=== PATIENT | female | born 1985 | race Caucasian/White ===

== ENCOUNTER 2021-10-14 00:17 | Emergency (ER) | payer OTHER, SELFPAY ==
[2021-10-14 00:25] VITALS: BP 141/77; PULSE 95; RESP 16; TEMP 36.8; O2SAT 100
--- NOTE | 2021-10-14 00:29 | ED.ABDPAIN ---
HPI - Abdominal Pain General Chief Complaint: Abdominal Pain Stated Complaint: 2 KIDNEY STONES Time Seen by Provider: 10/14/21 00:22 Source: patient Mode of arrival: Ambulatory History of Present Illness HPI narrative: 36-year-old female nonsmoker with noncontributory medical history presents with a chief complaint of right flank pain that seems to come and go without any obvious pattern. She denies any injury nor fever or chills. She was seen and evaluated yesterday add would be and had extensive workup including labs and CT which apparently note to kidney stones. She was discharged with pain medications but she has only taken half a pill as she has young children and she was concerned. She denies dysuria, frequency or urgency. Related Data Previous Rx's Medication Instructions Recorded cephalexin 500 mg capsule 500 mg PO BID #10 cap 10/14/21 ketorolac 10 mg tablet 10 mg PO Q6H PRN #14 tab 10/14/21 tamsulosin 0.4 mg capsule (Flomax) 0.4 mg PO DAILY #30 cap 10/14/21 Review of Systems Review of Systems Narrative: GENERAL: See HPI HEENT: Denies sinus pain, ear pain, sore throat, difficulty swallowing, dizziness. RESPIRATORY: Denies dyspnea, cough, wheezing, hemoptysis, sputum. CARDIOVASCULAR: Denies chest pain, palpitations, orthopnea, edema, GASTROINTESTINAL: See HPI : See HPI MUSCULOSKELETAL: denies weakness, joint pain, or bony pain SKIN: Denies rash, skin lesions, or other NEUROLOGIC: Denies weakness, headache, numbness, change in speech, confusion, seizures, incoordination. PSYCHIATRIC: No concerning psychosocial issues. 12 point review of systems is negative except for those stated above Exam Narrative Exam Narrative: GENERAL: [36 year old patient appears stated age. Well-developed patient, in mild distress. Uncomfortable, rubbing her right flank HEAD: Atraumatic. Normocephalic. EYES: Pupils equal round and reactive. Extraocular motions intact. No scleral icterus. No injection or drainage. ENT: Nose without bleeding, purulent drainage. Throat without erythema, tonsillar hypertrophy or exudate. Airway patent. NECK: Trachea midline. Non tender CARDIOVASCULAR: Regular rate and rhythm without murmurs, gallops, or rubs. RESPIRATORY: Clear to auscultation. Breath sounds equal bilaterally. No wheezes, rales, or rhonchi. GASTROINTESTINAL: Abdomen soft, non-tender, nondistended. EXTREMITIES: No edema or joint tenderness. BACK: Nontender without deformity or crepitance. No flank tenderness. NEURO: AOx3. SKIN: No rash or erythema of visible areas Initial Vital Signs Initial Vital Signs: Vital Signs Temperature 98.3 F 10/14/21 00:25 Pulse Rate 95 H 10/14/21 00:25 Respiratory Rate 16 10/14/21 00:25 Blood Pressure 141/77 H 10/14/21 00:25 Pulse Oximetry 100 10/14/21 00:25 Course Orders Ordered: ED Orders 10/14/21 00:40 Complete Blood Count AUTO DIFF Stat Comprehensive Metabolic Panel Stat Urine Culture Stat Urine Microscopic Stat 10/14/21 01:40 XR KUB Stat Discontinued Medications Sodium Chloride (Normal Saline 0.9%) 1,000 mls @ 1,000 mls/hr IV BOLUS ONE Stop: 10/14/21 01:28 Last Infusion: 10/14/21 02:00 Dose: 0 mls/hr Documented by: Admin: 10/14/21 00:50 Dose: 1,000 mls/hr Documented by: PING Lidocaine HCl 5.8 ml/ Sodium (Chloride) 55.8 mls @ 334.8 mls/hr IV NOW ONE Stop: 10/14/21 01:40 Last Admin: 10/14/21 01:59 Dose: 334.8 mls/hr Documented by: GYPSY Ketorolac Tromethamine (Ketorolac 30 Mg/Ml Vial) 15 mg IV NOW ONE Stop: 10/14/21 00:30 Last Admin: 10/14/21 00:50 Dose: 15 mg Documented by: PING Ondansetron HCl (Ondansetron 4 Mg/2 Ml Inj) 4 mg IV NOW ONE Stop: 10/14/21 00:30 Last Admin: 10/14/21 00:50 Dose: 4 mg Documented by: PING Tamsulosin HCl (Tamsulosin 0.4 Mg Capsule) 0.4 mg PO NOW ONE Stop: 10/14/21 00:30 Last Admin: 10/14/21 00:50 Dose: 0.4 mg Documented by: PING Reevaluation(s) Reevaluation #1: Records requested from [facility] Time: 00:32 Reevaluation #2: Significant improvement in symptoms after above-stated therapies Vital Signs Vital signs: Vital Signs - 8 hr 10/14/21 00:25 Temperature 98.3 F Pulse Rate 95 H Respiratory Rate 16 Blood Pressure 141/77 H Pulse Oximetry 100 MDM - Abdominal Pain Lab Data Result diagrams: 10/14/21 00:40 10/14/21 00:40 Labs: Lab Results 10/14/21 10/14/21 10/14/21 Range/Units 00:40 00:40 00:40 WBC 7.2 (4.5-11.0) X10^3/uL RBC 3.87 L (4.0-5.2) X10^6/uL Hgb 11.4 L (12.0-16.0) g/dL Hct 34.6 L (36-46) % MCV 89.4 (80-100) fL MCH 29.6 (26-34) PG MCHC 33.1 (30-36) % RDW 13.4 (11.6-14.8) % Plt Count 238 (150-400) X10^3/uL Neut % (Auto) 73.3 (50-75) % Lymph % (Auto) 17.1 L (25-40) % [place] % (Auto) 6.5 (3-14) % Eos % (Auto) 1.7 L (2-4) % Baso % (Auto) 1.4 (0-2) % Neut # (Auto) 5300 (9121-7490) /uL Lymph # (Auto) 1200 (9370-8583) /uL [place] # (Auto) 500 (0-900) /uL Eos # (Auto) 100 (0-450) /uL Baso # (Auto) 100 (0-100) /uL Sodium 140 (137-145) mmol/L Potassium 3.9 (3.4-5.1) mmol/L Chloride 106 (98-107) mmol/L Carbon Dioxide 27 (22-32) mmol/L BUN 20 H (7-17) mg/dL Creatinine 0.90 (0.52-1.04) mg/dL Estimated GFR > 60 (>60) mL/min BUN/Creatinine Ratio 22.2 H (6-22) Glucose 129 H (70-100) mg/dL Calcium 8.5 (8.4-10.2) mg/dL Total Bilirubin 0.6 (0.2-1.3) mg/dL AST 20 (14-36) IU/L ALT 12 (<35) IU/L Alkaline Phosphatase 33 L (38-126) U/L Total Protein 6.5 (6.3-8.2) g/dL Albumin 4.1 (3.5-5.0) g/dL Globulin 2.4 (1.7-4.1) g/dL Albumin/Globulin Ratio 1.7 (1.0-2.8) Urine RBC 30-100/hpf H (0-5/HPF) Urine WBC 1-5/hpf (0-5/HPF) Ur Squamous Epith Cells 1-5 /hpf (0-5/HPF) Calcium Oxalate Crystal Occasional H Urine Bacteria Moderate (10-30) H (None) Urine Mucus 3+ H (Negative) Ur Culture Indicated? Specimen cultured Imaging Data Abdominal x-ray: Radiologist's Impression: Launch?[address] [address] XRay Report Signed Patient: NELLI KENNEY MR#: [id number] : 1985 Acct:[id number] Age/Sex: 36 / F Date of Service: 10/14/21 Loc: ED Accession Number: [id number] ?? Procedure: XR KUB Ordering Provider: Liam Worley D.O. PROCEDURE:? XR KUB ? INDICATIONS:? stone in R UVJ ? TECHNIQUE:? One view of the abdomen acquired.? ? COMPARISON:? CT KUB 10/13/2021. ? FINDINGS:? ? Surgical changes and devices:? None.? ? Bowel:? Somewhat prominent stool in the colon.? No dilated loops of bowel identified. ? Soft tissues:? The previously seen calculus at the right UVJ is not appreciated.? Small right kidney stone measuring 0.5 cm at the right renal pelvis. No suspicious abdominal calcifications.? Visualized solid organ contours appear normal in size.? ? Bones:? No suspicious bony lesions.? ? IMPRESSION:? The previously seen right UVJ calculus is not appreciated. ? Small right kidney stone measuring 0.5 cm in the region of the right renal pelvis. ? Somewhat prominent stool in the colon. ? If clinically indicated CT KUB could be performed for further evaluation. ? ? Dictated by: Jose Jean M.D. on 10/14/2021 at 2:03 ? ? Approved by: Jose Jean M.D. on 10/14/2021 at 2:06 ? [facility] Narrative Medical decision making narrative: Patient with known right-sided kidney stone presents in significant pain. She has a reassuring history and physical exam, records from would be have been obtained and reviewed. Repeat labs and x-ray KUB are performed are reassuring. There is no sign of kidney infection or sepsis. Her pain is well controlled with above-stated therapies there is no sign of sepsis. She does have very subtle indication of the possibility of early urine infection hence my decision to treat with antibiotics. She still has pain medications and antinausea meds at home and I have added Flomax, ketorolac and antibiotic. She has been given contact information for local urology and understands indications for return. Questions have been answered to her apparent satisfaction Discharge Plan Departure Patient Disposition: Home Clinical Impression: Calculus of kidney Instructions: DI for Kidney Stones Activity Restrictions/Additional Instructions: *You have been diagnosed with [right-sided kidney stone. As we discussed your history and physical exam as well as labs and response to therapies is very reassuring and there is no indication for hospitalization or the need for urologic intervention. *What to do: *Please continue to take your regular medications as directed. [ x] New medication prescriptions sent to your pharmacy: [[facility]] [ ] New medication written as a paper prescription [ ] No new medications given *Please follow up with your primary care provider in 2-3 days, call for an appointment. Let them know you were seen in the Emergency Department and that we ask that you be seen in follow up. We will electronically transmit a record of today's note if your PCP is in our system * as we discussed I have included contact information for the urology group but our hospital, please call them later today, let them know that you were seen in the emergency department and we would like you to be seen in follow-up. I will electronically transmitted a copy of today's note to their office *If you do not have a primary care provider please contact the [facility] Resource line at [phone]. They will ask some questions about your medical history and help get you set up with a doctor in the community. *Return to Emergency Department if you should have any new, worsening or concerning symptoms, such as [fever greater than 101 F, shaking chills, worsening pain, persistent vomiting or other bothersome symptoms] Prescriptions: New ketorolac 10 mg tablet 10 mg PO Q6H PRN (Reason: pain) Qty: 14 0RF tamsulosin [Flomax] 0.4 mg capsule 0.4 mg PO DAILY Qty: 30 0RF cephalexin 500 mg capsule 500 mg PO BID Qty: 10 0RF Referrals: Darci Inman MD [Physician] -
[2021-10-14] MEDS: SODIUM CHLORIDE 0.9% 1,000 ML 1000 ML IV (00:50)
[2021-10-14] MEDS: KETOROLAC 30 MG/ML VIAL 15 MG IV (00:50)
[2021-10-14] MEDS: ONDANSETRON 4 MG/2 ML INJ IV (00:50)
[2021-10-14] MEDS: TAMSULOSIN 0.4 MG CAPSULE PO (00:50)
[2021-10-14 00:57] LABS: Add Manual Diff / Slide Review NO; Basophils Absolute Auto 100 /uL (0-100); Basophils Percent Auto 1.4 % (0-2); Eosinophils Absolute Auto 100 /uL (0-450); Eosinophils Percent Auto 1.7 % (2-4); Hematocrit 34.6 % (36-46); Hemoglobin 11.4 g/dL (12.0-16.0); Lymphocytes Absolute Auto 1200 /uL (1100-4500); Lymphocytes Percent Auto 17.1 % (25-40); Mean Corpuscular HGB Conc 33.1 % (30-36); Mean Corpuscular Hemoglobin 29.6 PG (26-34); Mean Corpuscular Volume 89.4 fL (80-100); Monocytes Absolute Auto 500 /uL (0-900); Monocytes Percent Auto 6.5 % (3-14); Neutrophils Absolute Auto 5300 /uL (1500-7000); Neutrophils Percent Auto 73.3 % (50-75); Platelet Count 238 X10^3/uL (150-400); Red Blood Cell Count 3.87 X10^6/uL (4.0-5.2); Red Cell Distribution Width 13.4 % (11.6-14.8); White Blood Cell Count 7.2 X10^3/uL (4.5-11.0)
[2021-10-14 01:05] LABS: RBC Urine 30-100/HPF (0-5/HPF); Squamous Epithelial Cell Urine 1-5 /HPF (0-5/HPF); WBC Urine 1-5/HPF (0-5/HPF)
[2021-10-14 01:06] LABS: Bacteria Urine Moderate (10-30); Calcium Oxalate Crystals Urine Occasional; Culture Indicated Urine Specimen Cultured; Mucus Urine 3+ (Negative)
[2021-10-14 01:07] LABS: Alanine Aminotransferase 12 IU/L (<35); Albumin 4.1 g/dL (3.5-5.0); Albumin Globulin Ratio 1.7 (1.0-2.8); Alkaline Phosphatase 33 U/L (38-126); Aspartate Aminotransferase 20 IU/L (14-36); BUN Creatinine Ratio 22.2 (6-22); Bilirubin Total 0.6 mg/dL (0.2-1.3); Blood Urea Nitrogen 20 mg/dL (7-17); Calcium 8.5 mg/dL (8.4-10.2); Carbon Dioxide 27 mmol/L (22-32); Chloride 106 mmol/L (98-107); Estimated Glomerular Filt Rate > 60 mL/min (>60); Globulin 2.4 g/dL (1.7-4.1); Glucose 129 mg/dL (70-100); HEMOLYSIS < 15 (0-50); Potassium 3.9 mmol/L (3.4-5.1); Sodium 140 mmol/L (137-145); Total Protein 6.5 g/dL (6.3-8.2)
[2021-10-14 01:38] VITALS: PULSE 79; O2SAT 100
[2021-10-14 01:39] VITALS: BP 121/73; PULSE 82; O2SAT 100
--- NOTE | 2021-10-14 01:40 | DI.RAD.S_ITS ---
PROCEDURE: XR KUB INDICATIONS: stone in R UVJ TECHNIQUE: One view of the abdomen acquired. COMPARISON: CT KUB 10/13/2021. FINDINGS: Surgical changes and devices: None. Bowel: Somewhat prominent stool in the colon. No dilated loops of bowel identified. Soft tissues: The previously seen calculus at the right UVJ is not appreciated. Small right kidney stone measuring 0.5 cm at the right renal pelvis. No suspicious abdominal calcifications. Visualized solid organ contours appear normal in size. Bones: No suspicious bony lesions. IMPRESSION: The previously seen right UVJ calculus is not appreciated. Small right kidney stone measuring 0.5 cm in the region of the right renal pelvis. Somewhat prominent stool in the colon. If clinically indicated CT KUB could be performed for further evaluation. Dictated by: Jose Jean M.D. on 10/14/2021 at 2:03 Approved by: Jose Jean M.D. on 10/14/2021 at 2:06
[2021-10-14] MEDS: LIDOCAINE 2% 5.8 ML in SODIUM CHLORIDE 0.9% 50 ML 334.8 ML IV (01:59)
[2021-10-14 02:00] VITALS: PULSE 70; O2SAT 99
[2021-10-14 02:05] VITALS: BP 131/69; PULSE 67; O2SAT 100
== END 2021-10-14 02:52 | disposition home or self-care (01) ==
PROVIDERS: Emergency Provider Emergency Medicine
DX: N20.0 Calculus of kidney (principal)
CPT/HCPCS: 74018; 80053; 81015; 85025; 87086; 96361; 96374; 96375; 99284; J1885; J2405

== ENCOUNTER → 2022-02-25 16:39 | Outpatient (CLI) | payer OTHER, SELFPAY ==
--- NOTE | 2022-02-25 16:42 | DI.MRI.S_ITS ---
PROCEDURE: MR HEAD/BRAIN WO/W CON INDICATIONS: DIZZINESS AND GIDDINESS TECHNIQUE: Noncontrast axial T1 spin echo, axial T2 fast spin echo, sagittal and axial FLAIR, coronal T2 fast spin echo, axial gradient echo, axial diffusion and ADC through the brain. After the administration of contrast, axial and coronal and sagittal 3D VIBE or T1 spin echo with fat saturation through the brain. COMPARISON: None. FINDINGS: Image quality: Excellent. CSF Spaces: Basal cisterns are patent. No extra-axial fluid collections. Ventricles are normal in size and shape. Brain: No midline shift. No intracranial bleeds or masses. No abnormal intracranial enhancement. The brainstem appears normal. Diffusion-weighted images demonstrate no acute ischemic insults. No chronic ischemic insults. Normal intravascular flow voids are present. Skull and face: Calvarial marrow is normal in signal. Orbits appear normal. Sinuses: Sinuses and mastoids appear clear. IMPRESSION: Normal MRI of the brain. Dictated by: Davis Son M.D. on 02/26/2022 at 9:18 Approved by: Davis Son M.D. on 02/26/2022 at 9:20
== END ==
PROVIDERS: PCP Nurse Practitioner Family; Referring Provider Nurse Practitioner Family; Visit Provider Nurse Practitioner Family
DX: R51.9 Headache, unspecified (principal); R42 Dizziness and giddiness; H93.19 Tinnitus, unspecified ear
CPT/HCPCS: 70553; A9579

== ENCOUNTER → 2023-01-24 12:00 | Outpatient (CLI) | payer OTHER, SELFPAY | PROVIDERS: PCP Nurse Practitioner Family; Visit Provider Nurse Practitioner Family | DX: M54.50 Low back pain, unspecified (principal); R35.0 Frequency of micturition; N94.9 Unspecified condition associated with female genital organs and menstrual cycle | CPT/HCPCS: 87077; 87086; 87186; 87210 ==

== ENCOUNTER 2023-02-24 19:28 | Emergency (ER) | payer OTHER, SELFPAY ==
[2023-02-24 19:45] VITALS: BP 134/91; PULSE 71; RESP 18; TEMP 36.6; O2SAT 100; BMI 29.7
[2023-02-24 20:22] LABS: Add Manual Diff / Slide Review NO; Basophils Absolute Auto 0 /uL (0-100); Basophils Percent Auto 0.7 % (0-2); Eosinophils Absolute Auto 0 /uL (0-450); Eosinophils Percent Auto 0.7 % (2-4); Hematocrit 40.7 % (36-46); Hemoglobin 13.9 g/dL (12.0-16.0); Lymphocytes Absolute Auto 2200 /uL (1100-4500); Lymphocytes Percent Auto 36.4 % (25-40); Mean Corpuscular HGB Conc 34.1 % (30-36); Mean Corpuscular Hemoglobin 29.7 PG (26-34); Mean Corpuscular Volume 87.2 fL (80-100); Monocytes Absolute Auto 400 /uL (0-900); Monocytes Percent Auto 7.2 % (3-14); Neutrophils Absolute Auto 3300 /uL (1500-7000); Platelet Count 268 X10^3/uL (150-400); Red Blood Cell Count 4.67 X10^6/uL (4.0-5.2); Red Cell Distribution Width 13.6 % (11.6-14.8); White Blood Cell Count 5.9 X10^3/uL (4.5-11.0)
[2023-02-24 20:34] LABS: Alanine Aminotransferase 18 IU/L (<35); Albumin 4.8 g/dL (3.5-5.0); Albumin Globulin Ratio 1.5 (1.0-2.8); BUN Creatinine Ratio 13.3 (6-22); Bilirubin Total 1.4 mg/dL (0.2-1.3); Blood Urea Nitrogen 11 mg/dL (7-17); Calcium 9.5 mg/dL (8.4-10.2); Carbon Dioxide 24 mmol/L (22-32); Chloride 105 mmol/L (98-107); Estimated Glomerular Filt Rate > 60 mL/min (>60); Globulin 3.2 g/dL (1.7-4.1); Glucose 90 mg/dL (70-100); Lipase 100 U/L (23-300); Sodium 139 mmol/L (137-145)
[2023-02-24 20:36] LABS: HEMOLYSIS 79 (0-50)
[2023-02-24 20:37] LABS: Alkaline Phosphatase 43 U/L (38-126); Aspartate Aminotransferase 28 IU/L (14-36); Potassium 4.3 mmol/L (3.4-5.1)
[2023-02-24 21:30] VITALS: BP 117/90; PULSE 81; O2SAT 98
--- NOTE | 2023-02-24 21:37 | ED.ABDPAIN ---
HPI - Abdominal Pain General Chief Complaint: Abdominal Pain Stated Complaint: abd pain Time Seen by Provider: 02/24/23 21:37 Source: patient Mode of arrival: Ambulatory History of Present Illness HPI narrative: Patient is a 37-year-old female who presents today with sudden onset left lower quadrant pain. She is a history of nephrolithiasis but she reports her previous kidney stones have always started in her back. She denies any nausea vomiting or fever. No diarrhea. She is a says the pain started suddenly it is only been going on for about 2-1/2 hours she is not taken in wart. She is otherwise having a normal day Related Data Allergies Allergy/AdvReac Type Severity Reaction Status Date / Time No Known Drug Allergies Allergy Unverified 01/24/23 11:55 Review of Systems Review of Systems ROS Unobtainable: All systems reviewed & are unremarkable except as noted in HPI and below Patient History Social History Smoking Status: Never smoker Smoking Status: Never smoker alcohol intake frequency: a few times a month Substance Use Type: does not use Exam Initial Vital Signs Initial Vital Signs: Vital Signs Temperature 97.8 F 02/24/23 19:45 Pulse Rate 71 02/24/23 19:45 Respiratory Rate 18 02/24/23 19:45 Blood Pressure 134/91 H 02/24/23 19:45 Pulse Oximetry 100 02/24/23 19:45 Oxygen Delivery Method Room Air 02/24/23 19:45 GENERAL: A tearful 37-year-old female appears uncomfortable and in pain HEENT: Head atraumatic,EOMI, pupils reactive, face symmetric, moist mucous membranes CARDIOVASCULAR: Regular rate and rhythm without murmurs, rubs or gallops. RESPIRATORY: Breath sounds equal bilaterally, no wheezes rales or rhonchi. ABDOMEN: Soft, tender left lower quadrant pain mild guarding no rebound : No CVA tenderness EXTREMITIES: Normal range of motion, no clubbing or edema. Neurovascularly intact NEUROLOGICAL: Alert and oriented x4 SKIN: Warm, dry, no laceration, no petechiae, no rashes or lesions. Course Orders Ordered: ED Orders 02/24/23 20:02 EKG-12 Lead Stat 02/24/23 20:12 Complete Blood Count AUTO DIFF Stat Comprehensive Metabolic Panel Stat Lipase Stat 02/24/23 21:40 CT abdomen pelvis w con Stat 02/24/23 23:19 US pelvic complete Stat Discontinued Medications Hydrocodone Bitart/Acetaminophen (Hydrocodone/Acet 5/325 Prepack) 1 bottle MISC SEEINSTR ONE Stop: 02/24/23 23:17 Last Admin: 02/25/23 00:33 Dose: 1 bottle Documented By: VARSHA Ketorolac Tromethamine (Ketorolac 30 Mg/Ml Vial) 15 mg IV NOW ONE Stop: 02/24/23 21:41 Last Admin: 02/24/23 21:46 Dose: 15 mg Documented By: BS Ondansetron HCl (Ondansetron 4 Mg Odt) 4 mg PO NOW PRN PRN Reason: Nausea And Vomiting Ondansetron HCl (Ondansetron 4 Mg/2 Ml Inj) 4 mg IV NOW PRN PRN Reason: Nausea And Vomiting Vital Signs Vital signs: Vital Signs - 8 hr 02/24/23 19:45 02/25/23 00:46 02/24/23 21:30 Temperature 97.8 F 97.3 F L Pulse Rate 71 Respiratory Rate 18 Blood Pressure 134/91 H 117/90 Pulse Oximetry 100 Oxygen Delivery Method Room Air Room Air 02/24/23 21:30 02/24/23 22:00 02/24/23 22:30 Temperature Pulse Rate 81 64 60 Respiratory Rate 14 20 Blood Pressure Pulse Oximetry 98 100 100 Oxygen Delivery Method 02/24/23 23:00 02/24/23 23:30 02/25/23 00:00 Temperature Pulse Rate 62 56 L 55 L Respiratory Rate 18 19 Blood Pressure Pulse Oximetry 99 98 98 Oxygen Delivery Method 02/25/23 00:30 02/25/23 00:40 02/25/23 00:40 Temperature Pulse Rate 65 60 Respiratory Rate Blood Pressure 109/59 L Pulse Oximetry 98 97 Oxygen Delivery Method MDM - Abdominal Pain Lab Data 02/24/23 20:12 02/24/23 20:12 Labs: Lab Results 02/24/23 02/24/23 Range/Units 20:12 20:12 WBC 5.9 (4.5-11.0) X10^3/uL RBC 4.67 (4.0-5.2) X10^6/uL Hgb 13.9 (12.0-16.0) g/dL Hct 40.7 (36-46) % MCV 87.2 (80-100) fL MCH 29.7 (26-34) PG MCHC 34.1 (30-36) % RDW 13.6 (11.6-14.8) % Plt Count 268 (150-400) X10^3/uL Neut % (Auto) 55.0 (50-75) % Lymph % (Auto) 36.4 (25-40) % [place] % (Auto) 7.2 (3-14) % Eos % (Auto) 0.7 L (2-4) % Baso % (Auto) 0.7 (0-2) % Neut # (Auto) 3300 (9501-2027) /uL Lymph # (Auto) 2200 (3848-1325) /uL [place] # (Auto) 400 (0-900) /uL Eos # (Auto) 0 (0-450) /uL Baso # (Auto) 0 (0-100) /uL Sodium 139 (137-145) mmol/L Potassium 4.3 (3.4-5.1) mmol/L Chloride 105 (98-107) mmol/L Carbon Dioxide 24 (22-32) mmol/L BUN 11 (7-17) mg/dL Creatinine 0.83 (0.52-1.04) mg/dL Estimated GFR > 60 (>60) mL/min BUN/Creatinine Ratio 13.3 (6-22) Glucose 90 (70-100) mg/dL Calcium 9.5 (8.4-10.2) mg/dL Total Bilirubin 1.4 H (0.2-1.3) mg/dL AST 28 (14-36) IU/L ALT 18 (<35) IU/L Alkaline Phosphatase 43 (38-126) U/L Total Protein 8.0 (6.3-8.2) g/dL Albumin 4.8 (3.5-5.0) g/dL Globulin 3.2 (1.7-4.1) g/dL Albumin/Globulin Ratio 1.5 (1.0-2.8) Lipase 100 (23-300) U/L Point of care testing: Point of Care Testing Test Results Negative Urine Dip Bedside Urine Glucose Negative Bedside Urine Bilirubin - Negative Bedside Urine Ketone - Negative Urine Specific Victor 1.010 Bedside Urine Occult Blood - Negative Bedside Urine pH 6.0 Bedside Urine Protein - Negative Bedside Urine Urobilinogen - Negative Bedside Urine Nitrite - Negative Bedside Urine Leukocytes - Negative Esterase Imaging Data CT scan - abdomen/pelvis: Radiologist's Impression: PROCEDURE:? CT ABDOMEN PELVIS W CON ? INDICATIONS:? llq pain ? TECHNIQUE:? After the administration of intravenous contrast, axial sections acquired from the lung bases to the pubic symphysis.? Coronal and sagittal reformats were performed.? For radiation dose reduction, the following was used:? automated exposure control, adjustment of mA and/or kV according to patient size.? ? COMPARISON:? None. ? FINDINGS:? Image quality:? Excellent.? ? Lung bases:? Unremarkable. Heart:? No significant findings. ? ABDOMEN: Liver:? Unremarkable.? ? Gallbladder:? Unremarkable.? ? Biliary ducts:? Unremarkable.? ? Pancreas:? Unremarkable.? ? Spleen:? Unremarkable.? ? Adrenal Glands:? Unremarkable.? ? Kidneys and Ureters:? 7 by 3 millimeter nonobstructing stone in the inferior calyx of the right kidney (493 Houn[address]field unit).? ? ? Stomach and Bowel:? Moderate colonic stool load.? Appendectomy.? No diverticular disease. Peritoneum:? No abnormal intraperitoneal fluid.? No free air.? ? Ventral Wall: ? No hernias.? Abdominal Nodes:? No retroperitoneal or mesenteric adenopathy by size criteria.? Vessels:? Aorta and inferior vena cava are normal in size.? ? PELVIS: Pelvic Organs:? Right corpus luteum.? ? Bladder:? Unremarkable.? ? Pelvic Nodes: No enlarged lymph nodes.? Miscellaneous: No hernias are seen. ? ? ? Bones:? Unremarkable.? IMPRESSION:? Moderate colonic stool load from otherwise, no acute abnormality. ? ? Dictated by: Selvin Brown M.D. on 02/24/2023 at 22:32 ? ? Approved by: Selvin Brown M.D. on 02/24/2023 at 22:36? US - BIOLOGICAL SCIENCE TECHNICIAN: Radiologist's Impression: PROCEDURE:? US PELVIC COMPLETE ? INDICATIONS:? LLQ PAIN ? TECHNIQUE:? Real-time scanning was performed of the pelvic organs, with image documentation.? Additional endovaginal scanning was necessary due to incomplete visualization of the adnexal and endometrial structures by transabdominal scanning. Color and spectral Doppler of the ovaries was performed. ? COMPARISON:? None. ? FINDINGS:? ?? Uterus:? Uterus is anteverted and normal in size at 9.4 x 4.4 x 6.3 cm. The myometrium is homogeneous. ? The endometrium measures 12 mm combined thickness.? ? Ovaries:? The right ovary measures 4.0 x 2.2 x 3.1 cm, with a calculated ovarian volume of 15 cc. The left ovary measures 3.2 x 1.6 x 3.5 cm, with a calculated ovarian volume of 9 cc. The ovaries have a normal sonographic appearance.? Hemorrhagic right corpus luteum. ?Less than 12 follicles can be seen in each ovary.? No adnexal masses are seen. Normal color Doppler of the ovaries.? Normal arterial waveform with spectral Doppler. ? Other:? No pathologic free abdominal or pelvic fluid. ? ? IMPRESSION:? Hemorrhagic right corpus luteum. ? Normal size of the ovaries.? Normal arterial waveform.? Findings do not suggest torsion. ? ? We strive to produce accurate, complete, and clear reports of imaging services. To assist us in improving patient care, this report was composed using standard report templates and voice recognition software. Therefore, it may contain abnormal punctuation, insertions and/or omissions. Occasional wrong-word or sound-alike substitutions may occur. Though we review the report and make efforts to correct it, we do recommend that the report be read carefully in proper context to recognize any text inaccuracies. ? ? Dictated by: Selvin Brown M.D. on 02/25/2023 at 0:22 ? ? Approved by: Selvin Brown M.D. on 02/25/2023 at 0:26 ? MDM Narrative Medical decision making narrative: Patient is a healthy 37-year-old female presents today with a sudden onset for floor drink abdominal pain. She is quite tender. Blood work is overall reassuring no leukocytosis or anemia, electrolytes are within normal limits. CT only shows moderate stool load consistent with constipation. Abdomen is reexamined she remains fairly tender in the left lower quadrant ultrasound was done she is found have a right ovarian cyst but no evidence of left ovarian cyst torsion or abscess. I suspect she is constipated. Recommend supportive care only. She reports still having quite a bit of pain she is given prepack of [place] for severe pain knowing that it could worsen constipation. Discharge Plan Departure Patient Disposition: Home Clinical Impression: Constipation Instructions: DI for Constipation Activity Restrictions/Additional Instructions: *You have been diagnosed with constipation *What to do: At this time no cause of abdominal pain found except for constipation. Increase water intake *Continue to take medications as directed Tylenol Motrin as needed for pain [place] 1 tablet every 6 hours if needed for severe pain *Follow up with your primary care provider in 2-3 days or call [phone] *Return to ER if you should have increasing pain nausea vomiting fever or any new, worsening or concerning symptoms CONTROLLED SUBSTANCE DISCHARGE (Narcotoic/benzodiazepine/Flexeril/Phenergan) 1. You have been prescribed narcotic medications, it does have acetaminophen/Tylenol/paracetamol in it, DO NOT TAKE MORE THAN 4,00mg in 24 hours of Tylenol. TRAMADOL DOES NOT CONTAIN TYLENOL 2. Please understand that we cannot provide further refills of narcotics, benzodiazepines or controlled substances through the ED and her pain management will need to be through your provider. 3. While on these medications you cannot drive or operate heavy machinery. 4. You cannot sign legal documents or perform any duties such as this. 5. As long as you're taking opiate pain medications he should also be taking a stool softener such as Colace, Dulcolax, MiraLAX or prune juice, to help avoid constipation. Referrals: Essie Canales ARNP [Primary Care Provider] - Stand Alone Forms: Patient Portal/API
--- NOTE | 2023-02-24 21:40 | DI.CT.S_ITS ---
PROCEDURE: CT ABDOMEN PELVIS W CON INDICATIONS: llq pain TECHNIQUE: After the administration of intravenous contrast, axial sections acquired from the lung bases to the pubic symphysis. Coronal and sagittal reformats were performed. For radiation dose reduction, the following was used: automated exposure control, adjustment of mA and/or kV according to patient size. COMPARISON: None. FINDINGS: Image quality: Excellent. Lung bases: Unremarkable. Heart: No significant findings. ABDOMEN: Liver: Unremarkable. Gallbladder: Unremarkable. Biliary ducts: Unremarkable. Pancreas: Unremarkable. Spleen: Unremarkable. Adrenal Glands: Unremarkable. Kidneys and Ureters: 7 by 3 millimeter nonobstructing stone in the inferior calyx of the right kidney (493 [address]oun[address] unit). Stomach and Bowel: Moderate colonic stool load. Appendectomy. No diverticular disease. Peritoneum: No abnormal intraperitoneal fluid. No free air. Ventral Wall: No hernias. Abdominal Nodes: No retroperitoneal or mesenteric adenopathy by size criteria. Vessels: Aorta and inferior vena cava are normal in size. PELVIS: Pelvic Organs: Right corpus luteum. Bladder: Unremarkable. Pelvic Nodes: No enlarged lymph nodes. Miscellaneous: No hernias are seen. Bones: Unremarkable. IMPRESSION: Moderate colonic stool load from otherwise, no acute abnormality. Dictated by: Selvin Brown M.D. on 02/24/2023 at 22:32 Approved by: Selvin Brown M.D. on 02/24/2023 at 22:36
[2023-02-24] MEDS: KETOROLAC 30 MG/ML VIAL 15 MG IV (21:46)
[2023-02-24 22:00] VITALS: PULSE 64; RESP 14; O2SAT 100
[2023-02-24 22:30] VITALS: PULSE 60; RESP 20; O2SAT 100
[2023-02-24 23:00] VITALS: PULSE 62; RESP 18; O2SAT 99
--- NOTE | 2023-02-24 23:19 | DI.US.S_ITS ---
PROCEDURE: US PELVIC COMPLETE INDICATIONS: LLQ PAIN TECHNIQUE: Real-time scanning was performed of the pelvic organs, with image documentation. Additional endovaginal scanning was necessary due to incomplete visualization of the adnexal and endometrial structures by transabdominal scanning. Color and spectral Doppler of the ovaries was performed. COMPARISON: None. FINDINGS: Uterus: Uterus is anteverted and normal in size at 9.4 x 4.4 x 6.3 cm. The myometrium is homogeneous. The endometrium measures 12 mm combined thickness. Ovaries: The right ovary measures 4.0 x 2.2 x 3.1 cm, with a calculated ovarian volume of 15 cc. The left ovary measures 3.2 x 1.6 x 3.5 cm, with a calculated ovarian volume of 9 cc. The ovaries have a normal sonographic appearance. Hemorrhagic right corpus luteum. Less than 12 follicles can be seen in each ovary. No adnexal masses are seen. Normal color Doppler of the ovaries. Normal arterial waveform with spectral Doppler. Other: No pathologic free abdominal or pelvic fluid. IMPRESSION: Hemorrhagic right corpus luteum. Normal size of the ovaries. Normal arterial waveform. Findings do not suggest torsion. We strive to produce accurate, complete, and clear reports of imaging services. To assist us in improving patient care, this report was composed using standard report templates and voice recognition software. Therefore, it may contain abnormal punctuation, insertions and/or omissions. Occasional wrong-word or sound-alike substitutions may occur. Though we review the report and make efforts to correct it, we do recommend that the report be read carefully in proper context to recognize any text inaccuracies. Dictated by: Selvin Brown M.D. on 02/25/2023 at 0:22 Approved by: Selvin Brown M.D. on 02/25/2023 at 0:26
[2023-02-24 23:30] VITALS: PULSE 56; RESP 19; O2SAT 98
[2023-02-25] VITALS: PULSE 55; O2SAT 98
[2023-02-25 00:30] VITALS: PULSE 65; O2SAT 98
[2023-02-25] MEDS: HYDROCODONE/ACET 5/325 PREPACK 1 BOTTLE MISC (00:33)
[2023-02-25 00:40] VITALS: BP 109/59; PULSE 60; O2SAT 97
[2023-02-25 00:46] VITALS: TEMP 36.3
== END 2023-02-25 00:45 | disposition home or self-care (01) ==
PROVIDERS: Emergency Provider Emergency Medicine; PCP Nurse Practitioner Family
DX: K59.00 Constipation, unspecified (principal); R10.32 Left lower quadrant pain
CPT/HCPCS: 36415; 74177; 76830; 76856; 80053; 81003; 81025; 83690; 85025; 93975; 96374; 99284; J1885; Q9967

== ENCOUNTER → 2023-08-02 16:13 | Outpatient (CLI) | payer OTHER, SELFPAY ==
--- NOTE | 2023-08-02 16:14 | DI.US.S_ITS ---
PROCEDURE: US PELVIC COMPLETE INDICATIONS: pelvic pain TECHNIQUE: Real-time scanning was performed of the pelvic organs, with image documentation. Additional endovaginal scanning was necessary due to incomplete visualization of the adnexal and endometrial structures by transabdominal scanning. COMPARISON: [facility], , US PELVIC COMPLETE, 02/24/2023, 23:42. FINDINGS: Uterus: Uterus is anteverted and normal in size at 8.7 x 6.2 x 4.7 cm. The myometrium is homogeneous. The endometrium measures 10.4 mm combined thickness. No endometrial mass or fluid is seen. Ovaries: The right ovary measures 3.2 x 1.9 x 1.9 cm, with a calculated ovarian volume of 6.0 cc. The left ovary measures 3.5 x 2.5 x 2.5 cm, with a calculated ovarian volume of 11.4 cc. Previously described complex cyst in right ovary is no longer seen on the current study. Possible left-sided corpus luteum measures 1.8 x 1.6 x 1.4 cm is noted. Less than 12 follicles can be seen in each ovary. No adnexal masses are seen. Other: No pathologic free abdominal or pelvic fluid. IMPRESSION: 1. Normal appearing uterus and endometrium. 2. Previously noted right ovarian cyst is no longer seen suggestive of interval resolution. Possible corpus luteum in left ovary as above. No ovarian mass. No evidence of torsion. We strive to produce accurate, complete, and clear reports of imaging services. To assist us in improving patient care, this report was composed using standard report templates and voice recognition software. Therefore, it may contain abnormal punctuation, insertions and/or omissions. Occasional wrong-word or sound-alike substitutions may occur. Though we review the report and make efforts to correct it, we do recommend that the report be read carefully in proper context to recognize any text inaccuracies. Dictated by: Timur Castaneda M.D. on 08/03/2023 at 11:01 Approved by: Timur Castaneda M.D. on 08/03/2023 at 11:07
== END ==
LOC: US 16:14
PROVIDERS: PCP Nurse Practitioner Family; Referring Provider Student in an Organized Health Care Education/Training Program; Visit Provider Student in an Organized Health Care Education/Training Program
DX: N92.6 Irregular menstruation, unspecified (principal)
CPT/HCPCS: 76856